=== PATIENT | female | born 1970 | race Caucasian/White ===

== ENCOUNTER → 2019-06-03 | Outpatient (CLI) | payer OTHER ==
[~2019-06-03] MED LIST: GLYBURIDE5 MG PO; KEFLEX500 MG PO; LISINOPRIL10 MG PO; Lovenox40 MG/0.4 PO; METFORMIN1000 MG PO; OMNICEF300 MG PO; PERCOCET 325 MG1 TA7 PO; SYNTHROID0.1 MG PO; VICODIN 5/500 505 MG PO
== END | disposition home or self-care (01) ==
LOC: NM 06:49
DX: R10.10 Upper abdominal pain, unspecified (principal); R11.2 Nausea with vomiting, unspecified; R14.0 Abdominal distension (gaseous)

== ENCOUNTER → 2019-07-14 | Outpatient (CLI) | payer OTHER | END | disposition home or self-care (01) | LOC: CARD 14:28 | DX: I34.0 Nonrheumatic mitral (valve) insufficiency (principal); R06.02 Shortness of breath; R63.5 Abnormal weight gain ==

== ENCOUNTER → 2019-09-07 | Outpatient (CLI) | payer OTHER ==
[2019-09-07 08:38] LABS: BASO # 0.1 10*3/uL (0.0-0.1); BASO % 0.6 % (0.0-1.0); EOS # 0.3 10*3/uL (0.0-0.4); EOS % 3.5 % (1.0-4.0); HEMATOCRIT 40.7 % (37.0-47.0); HEMOGLOBIN 13.2 g/dl (12.0-16.0); LYMPH # 2.7 10*3/uL (1.3-4.4); MEAN CELL VOLUME 91.5 fl (81.0-99.0); MEAN CORPUSCULAR HGB 29.7 pg (27.0-31.0); MEAN CORPUSCULAR HGB CONC 32.4 g/dl (33.0-37.0); MEAN PLATELET VOLUME 10.4 fl (9.6-12.3); MONO # 0.4 10*3/uL (0.1-1.0); NEUT % 58.5 % (47.0-73.0); PLATELET COUNT AUTOMATED 324 10*3/uL (130-400); RED BLOOD COUNT 4.45 10*6/uL (4.10-5.10); RED CELL DISTRI WIDTH 13.7 % (0-14.5); WHITE BLOOD COUNT 8.6 10*3/uL (4.8-10.8)
[2019-09-07 08:56] LABS: ALBUMIN 3.8 gm/dl (3.1-4.5); BUN 19 mg/dl (7-24); CHLORIDE 107 mmol/L (98-107); CHOLESTEROL 237 mg/dL (<200); CREATININE 1.09 mg/dL (0.55-1.02); GAMMA GLUTAMYL TRANSPEPTIDASE 30 U/L (5-55); POTASSIUM 4.9 mmol/L (3.5-5.1); SGOT/AST 23 IU/L (3-35); SGPT/ALT 38 U/L (12-78); SODIUM 143 mmol/L (136-145); T3 UPTAKE 32 % (31-39); THYROXINE (T4) TOTAL 9.1 ug/dl (4.8-13.9); TOTAL PROTEIN 8.4 gm/dL (6.4-8.2); TRIGLYCERIDES 279 mg/dl (<150); VLDL CHOLESTEROL 56 mg/dL (6-40)
[2019-09-07 09:03] LABS: ALKALINE PHOSPHATASE 69 U/L (45-117); CPK 44 U/L (26-192); HDL CHOLESTEROL 47 mg/dl (40-60); LDL CHOLESTEROL 134 mg/dL (9-159)
[2019-09-07 10:20] LABS: FERRITIN 171.4 ng/mL (10.0-291.0); VITAMIN D, 25-HYDROXY 29.9 ng/mL (30-100)
== END | disposition home or self-care (01) ==
LOC: LAB 08:12
PROVIDERS: Family Medicine
DX: E55.9 Vitamin D deficiency, unspecified (principal); E78.5 Hyperlipidemia, unspecified; R53.83 Other fatigue; R79.89 Other specified abnormal findings of blood chemistry

== ENCOUNTER → 2021-08-25 | Outpatient (CLI) | payer BC | END | disposition home or self-care (01) | LOC: CT 00:08 | PROVIDERS: ATTEND Obstetrics & Gynecology | DX: C54.1 Malignant neoplasm of endometrium (principal); Z90.49 Acquired absence of other specified parts of digestive tract ==

== ENCOUNTER → 2021-09-04 | Outpatient (CLI) | payer OTHER | END | disposition home or self-care (01) | LOC: COVID19 16:47 | PROVIDERS: ATTEND Internal Medicine | DX: U07.1 COVID-19 (principal) ==

== ENCOUNTER 2021-09-28 09:21 | Inpatient (IN) | payer OTHER ==
[2021-09-28] VITALS (16 sets, daily range): BP systolic 87–141; BP diastolic 30–84
[~2021-09-28] VITALS: Ht 170.1 cm; Wt 183.3 kg
[2021-09-28 10:08] LABS: ACT PARTIAL THROMBO TIME 25.1 SECONDS (20.0-32.1); INTERNATIONAL NORM RATIO 1.1 (2.0-3.5)
[2021-09-28 10:14] LABS: ALBUMIN 2.4 gm/dl (3.1-4.5); ALKALINE PHOSPHATASE 54 U/L (45-117); BUN 30 mg/dl (7-24); CHLORIDE 98 mmol/L (98-107); CREATININE 2.48 mg/dL (0.55-1.02); LIPASE 22 U/L (73-393); POTASSIUM 5.3 mmol/L (3.5-5.1); SGOT/AST 49 IU/L (3-35); SGPT/ALT 70 U/L (12-78); SODIUM 130 mmol/L (136-145); TOTAL PROTEIN 6.4 gm/dL (6.4-8.2)
[2021-09-28 10:18] LABS: HEMATOCRIT 32.1 % (37.0-47.0); MEAN CELL VOLUME 84.7 fl (81.0-99.0); MEAN CORPUSCULAR HGB 28.2 pg (27.0-31.0); MEAN CORPUSCULAR HGB CONC 33.3 g/dl (33.0-37.0); MEAN PLATELET VOLUME 10.6 fl (9.6-12.3); PLATELET COUNT AUTOMATED 139 10*3/uL (130-400); RED BLOOD COUNT 3.79 10*6/uL (4.10-5.10); RED CELL DISTRI WIDTH 13.8 % (0-14.5)
[2021-09-28 10:20] LABS: WHITE BLOOD COUNT 0.2 10*3/uL (4.8-10.8)
[2021-09-28 10:24] LABS: BETA-HCG, QUANT < 1.0 mIU/mL (1-3)
[2021-09-28 10:39] LABS: PLATELET SUFFICIENCY NORMAL (NORMAL); TOTAL CELLS COUNTED 100 #CELLS
[2021-09-28] MEDS ORDERED: HUMULIN 70/30 710 M1 SQ (12:50)
[2021-09-28] MEDS ORDERED: LOPID600 M1 PO (19:39)
[2021-09-28] MEDS ORDERED: LIPITOR20 MG PO (19:39)
[2021-09-28] MEDS ORDERED: Synthroid,Lev200 MCG PO (19:40)
[2021-09-28] MEDS ORDERED: Synthroid,Levo50 MCG PO (19:40)
[2021-09-28] MEDS ORDERED: K-TAB10 MEQ PO (19:41)
[2021-09-28] MEDS ORDERED: LASIX20 MG PO (19:41)
[2021-09-28] MEDS ORDERED: OMEPRAZOLE40 MG PO (19:42)
[2021-09-28] MEDS ORDERED: VITAMIN D31 ML MC (19:45)
[2021-09-29] VITALS (15 sets, daily range): BP systolic 45–135; BP diastolic 1–68
[2021-09-29 00:04] LABS: HEMATOCRIT 29.4 % (37.0-47.0); MEAN CELL VOLUME 86.5 fl (81.0-99.0); MEAN CORPUSCULAR HGB 28.5 pg (27.0-31.0); MEAN PLATELET VOLUME 11.3 fl (9.6-12.3); PLATELET COUNT AUTOMATED 146 10*3/uL (130-400); RED CELL DISTRI WIDTH 14.5 % (0-14.5)
[2021-09-29 00:07] LABS: CREATININE 2.49 mg/dL (0.55-1.02); POTASSIUM 4.9 mmol/L (3.5-5.1)
[2021-09-29 00:13] LABS: WHITE BLOOD COUNT 0.2 10*3/uL (4.8-10.8)
[2021-09-29 00:59] LABS: ATYPICAL LYMPHS 1 % (0-0); PLATELET SUFFICIENCY NORMAL (NORMAL); TOTAL CELLS COUNTED 100 #CELLS
[2021-09-29 01:35] LABS: ARTERIAL BLOOD GAS PO2 159.3 (80-90)
[2021-09-29 01:40] LABS: ARTERIAL BLOOD GAS PH 7.147 (7.35-7.45)
[2021-09-29 06:13] LABS: ARTERIAL BLOOD GAS PO2 154.5 (80-90)
[2021-09-29 06:15] LABS: ARTERIAL BLOOD GAS PH 6.917 (7.35-7.45)
[2021-09-29 06:20] LABS: ALBUMIN 1.6 gm/dl (3.1-4.5); POTASSIUM 5.4 mmol/L (3.5-5.1)
[2021-09-29 06:23] LABS: MEAN CORPUSCULAR HGB 28.2 pg (27.0-31.0); MEAN CORPUSCULAR HGB CONC 30.3 g/dl (33.0-37.0); MEAN PLATELET VOLUME 12.3 fl (9.6-12.3); RED BLOOD COUNT 3.44 10*6/uL (4.10-5.10); RED CELL DISTRI WIDTH 14.6 % (0-14.5)
[2021-09-29 06:24] LABS: PLATELET COUNT AUTOMATED 212 10*3/uL (130-400)
[2021-09-29 06:25] LABS: WHITE BLOOD COUNT 0.6 10*3/uL (4.8-10.8)
[2021-09-29 06:29] LABS: IRON 45 ug/dL (50-170); LDH 211 U/L (84-246); TOTAL IRON BINDING CAPACITY 235 ug/dl (250-450)
[2021-09-29 06:31] LABS: RETICULOCYTE % 0.47 % (0.50-2.50)
[2021-09-29 06:38] LABS: CREATININE 3.31 mg/dL (0.55-1.02); FREE T4 0.72 ng/dl (0.76-1.46); THYROID STIM HORMONE (HS) 1.59 uIU/ml (0.358-4.75); TOTAL PROTEIN 5.1 gm/dL (6.4-8.2)
[2021-09-29 08:06] LABS: BURR CELLS MODERATE; PLATELET SUFFICIENCY NORMAL (NORMAL); TOTAL CELLS COUNTED 51 #CELLS
[2021-09-29 08:10] LABS: ARTERIAL BLOOD GAS PO2 175.8 (80-90)
[2021-09-29 08:12] LABS: ARTERIAL BLOOD GAS PH 7.026 (7.35-7.45)
== END 2021-09-29 09:22 | DRG 871 ==
LOC: ED 09:21 → EDHOLD 12:16 → 5E 18:26 → EDHOLD 09-29 09:22
PROVIDERS: Emergency Medicine; Internal Medicine; Internal Medicine Hematology & Oncology; ADMIT Student in an Organized Health Care Education/Training Program; ATTEND Student in an Organized Health Care Education/Training Program
PROC: 5A1935Z Respiratory Ventilation, Less than 24 Consecutive Hours (ICD-10-PCS; principal; 2021-09-28)
PROC: 0BH17EZ Insertion of Endotracheal Airway into Trachea, Via Natural or Artificial Opening (ICD-10-PCS; 2021-09-28)
PROC: 02HV33Z Insertion of Infusion Device into Superior Vena Cava, Percutaneous Approach (ICD-10-PCS; 2021-09-28)
PROC: B548ZZA Ultrasonography of Superior Vena Cava, Guidance (ICD-10-PCS; 2021-09-28)
DX: A41.9 Sepsis, unspecified organism (principal); N17.0 Acute kidney failure with tubular necrosis; E43 Unspecified severe protein-calorie malnutrition; R65.21 Severe sepsis with septic shock; E87.1 Hypo-osmolality and hyponatremia; D64.9 Anemia, unspecified; Z20.822 Contact with and (suspected) exposure to COVID-19; E86.0 Dehydration; E87.5 Hyperkalemia; E80.6 Other disorders of bilirubin metabolism; E83.42 Hypomagnesemia; I95.89 Other hypotension; D70.1 Agranulocytosis secondary to cancer chemotherapy; T45.1X5A Adverse effect of antineoplastic and immunosuppressive drugs, initial encounter; E11.65 Type 2 diabetes mellitus with hyperglycemia; E78.5 Hyperlipidemia, unspecified; C54.1 Malignant neoplasm of endometrium; E03.9 Hypothyroidism, unspecified; E66.01 Morbid (severe) obesity due to excess calories; K52.9 Noninfective gastroenteritis and colitis, unspecified; Y92.89 Other specified places as the place of occurrence of the external cause; Z90.49 Acquired absence of other specified parts of digestive tract; Z90.710 Acquired absence of both cervix and uterus; Z87.891 Personal history of nicotine dependence; Z92.21 Personal history of antineoplastic chemotherapy; Z88.5 Allergy status to narcotic agent; Z88.6 Allergy status to analgesic agent; Z79.899 Other long term (current) drug therapy; Z79.4 Long term (current) use of insulin